=== PATIENT | male | born 1995 | race Caucasian/White ===

== ENCOUNTER 2022-09-17 15:45 | Emergency (ER) | payer OTHER ==
[~2022-09-17] VITALS: Ht 172.7 cm; Wt 68.0 kg
[~2022-09-17 15:45] MED LIST: AMOXIL250 MG/5 M PO; BACTRIM DS 8001 TA1 PO; BENADRYL25 MG PO; HYDROCODONE BIT1 T11 PO; IBU800 M1 PO; KEFLEX500 MG PO; NKHM; PREDNICOT20 MG PO; ROBITUSSIN DM 105 ML PO
[2022-09-17 17:50] LABS: BILIRUBIN 2+ (Negative); BLOOD Negative (Negative); CLARITY Clear (Clear); COLOR Orange (Yellow); GLUCOSE Negative (Negative); KETONE Negative (Negative); LEUKO ESTERASE 1+ (Negative); NITRITE Positive (Negative); SPECIFIC GRAVITY 1.025 (1.001-1.030)
[2022-09-17 17:58] LABS: BACTERIA TRACE; MUCOUS TRACE
[2022-09-17 18:02] LABS: HEMATOCRIT 39.3 % (42.0-52.0); MEAN CELL VOLUME 83.3 fl (80.0-94.0); MEAN CORPUSCULAR HGB 29.2 pg (27.0-31.0); MEAN CORPUSCULAR HGB CONC 35.1 g/dl (33.0-37.0); MEAN PLATELET VOLUME 9.7 fl (9.6-12.3); PLATELET COUNT AUTOMATED 314 10*3/uL (130-400); RED BLOOD COUNT 4.72 10*6/uL (4.50-5.90); RED CELL DISTRI WIDTH 11.9 % (0-14.5); WHITE BLOOD COUNT 15.2 10*3/uL (4.8-10.8)
[2022-09-17 18:03] LABS: MANUAL DIFF REFLEX YES
[2022-09-17 18:16] LABS: ALKALINE PHOSPHATASE 51 U/L (46-116); BUN 13 mg/dl (9-23); CHLORIDE 100 mmol/L (98-107); LIPASE 30 U/L (12-53); POTASSIUM 3.6 mmol/L (3.4-5.1); SGPT/ALT 14 U/L (10-49); TOTAL PROTEIN 7.4 gm/dL (6.0-8.0)
[2022-09-17 18:32] LABS: PLATELET SUFFICIENCY NORMAL (NORMAL); TOTAL CELLS COUNTED 100 #CELLS
[2022-09-17 19:33] VITALS: BP 116/65
[2022-09-17] MEDS ORDERED: HYDROCODONE-AC1 EAC1 PO (20:48)
[2022-09-17] MEDS ORDERED: FLOMAX0.4 MG PO (20:48)
[2022-09-17] MEDS ORDERED: SEPTDS PO (20:48)
== END 2022-09-17 20:59 | disposition home or self-care (01) ==
LOC: ED 15:45
PROVIDERS: Physician Assistant
DX: N20.1 Calculus of ureter (principal); Z87.442 Personal history of urinary calculi